=== PATIENT | female | born 1965 | race Caucasian/White ===

== ENCOUNTER 2020-02-20 03:55 | Inpatient (IN) | payer BC ==
[~2020-02-20] VITALS: Ht 165.1 cm; Wt 63.5 kg
[2020-02-20] VITALS (10 sets, daily range): BP systolic 88–122; BP diastolic 46–56
[2020-02-20] MEDS ORDERED: [UNRECOGNIZED DRUG - REMARK] (04:41)
[2020-02-20] MEDS ORDERED: ENOX60DI SQ (04:41)
[2020-02-20] MEDS ORDERED: ONDA4TAB8 PO (04:41)
[2020-02-20 04:46] LABS: BASOPHILS # (AUTO) 0.1 K/uL (0.0-8.0); BASOPHILS % (AUTO) 0.3 % (0.0-2.0); LYMPHOCYTES # (AUTO) 1.2 K/uL (20.0-40.0); LYMPHOCYTES % (AUTO) 3.7 % (20.5-51.5); MEAN CORPUSCULAR HEMOGLOBIN 30.7 uug (24.7-32.8); MEAN CORPUSCULAR HGB CONC 31 g/dL (32.3-35.6); MEAN CORPUSCULAR VOLUME 100.1 fL (75.5-95.3); MONOCYTES # (AUTO) 1.2 K/uL (2.0-10.0); MONOCYTES % (AUTO) 3.7 % (0.0-11.0); NEUTROPHILS # (AUTO) 30.1 K/uL (1.8-8.9); NEUTROPHILS % (AUTO) 92.3 % (38.5-71.5); PLATELET COUNT (AUTO) 265 K/uL (179-408)
[2020-02-20 04:51] LABS: HEMOGLOBIN 6.2 g/dL (10.9-14.3); RED BLOOD CELL COUNT(AUTO) 2.01 MIL/uL (3.63-4.92); WHITE BLOOD COUNT (AUTO) 32.6 K/uL (3.8-11.8)
[2020-02-20 04:52] LABS: HEMATOCRIT 20.1 % (31.2-41.9)
[2020-02-20 04:58] LABS: BILIRUBIN,DIRECT 0.2 mg/dL (0.0-0.2); POTASSIUM 4.6 mmol/L (3.5-5.1); TOTAL PROTEIN, SERUM 6.1 g/dL (6.4-8.2)
[2020-02-20] MEDS ORDERED: PIPERACILLIN SODIUM/TAZOBACTAM 3.375 G in IV DEXTROSE 5% 50 ML IV ONE (05:15)
[2020-02-20] MEDS ORDERED: VANCOMYCIN 1G/D5W 200 ML PIGGYBACK IV ONE (05:15)
[2020-02-20] MEDS ORDERED: NOREPINEPHRINE BITARTRATE 8 MG in IV NORMAL SALINE 242 ML IV PRN (05:15)
[2020-02-20] MEDS ORDERED: METRONIDAZOLE 500 MG/NS 100 ML PIGGYBACK IV ONE (05:15)
--- NOTE | 2020-02-20 05:15 | NUR ---
O Negative blood infusion started per Dr. Carr order. Verified with Isaiah EVANS.
[2020-02-20] MEDS ORDERED: LORA1TAB PO (05:40)
[2020-02-20] MEDS ORDERED: CLON0.5T4 PO (05:40)
[2020-02-20] MEDS ORDERED: MELA5TAB PO (05:40)
[2020-02-20] MEDS ORDERED: DOCU-141 PO (05:40)
[2020-02-20] MEDS ORDERED: PROC10TA29 PO (05:40)
[2020-02-20] MEDS ORDERED: CALC-168 PO (05:40)
[2020-02-20] MEDS ORDERED: PIPERACILLIN SODIUM/TAZO 3.375 GM VIAL ONE ×2 (06:01→06:06)
--- NOTE | 2020-02-20 06:12 | NUR ---
Dr. Carr on panel call with Dr. Fan Wood.
--- NOTE | 2020-02-20 06:15 | NUR ---
1 unit of O Negative blood transfused as ordered. Vitals are stable. No signs of reaction.
[2020-02-20] MEDS ORDERED: SWABABLE VALVE TRANSFER SET EA MC ONE (06:30)
[2020-02-20] MEDS ORDERED: IOHEXOL 300MG/ML 100 ML INFUS..BTL ONE (06:30)
[2020-02-20] MEDS ORDERED: IV NORMAL SALINE 250 ML IV ONE (06:30)
[2020-02-20 06:34] LABS: *OCCULT BLOOD STOOL NEGATIVE (NEGATIVE)
--- NOTE | 2020-02-20 06:40 | NUR ---
Patient went down to radiology dept for CT scans.
--- NOTE | 2020-02-20 07:04 | NUR ---
Patient back from radiology dept. Placed back on monitor. IV antibiotics infusing.
--- NOTE | 2020-02-20 07:12 | NUR ---
Report given to CRISTINA Mcclain for continuity of care.
[2020-02-20] MEDS ORDERED: VANCOMYCIN IV 200 ML ONE (08:09)
--- NOTE | 2020-02-20 08:30 | NUR ---
Paged Dr. Huston/[facility] for admitting.
[2020-02-20 08:41] LABS: BAND % (MANUAL) 5 % (0-10); LYMPHOCYTES % (MANUAL) 3 % (20-40); METAMYELOCYTES % 3 % (0-1); MONOCYTES % (MANUAL) 3 % (2-10); MYELOCYTES % 2 % (0-0); NEUTROPHILS % (MANUAL) 84 % (42-75)
[2020-02-20] MEDS ORDERED: IV NORMAL SALINE 1000 ML BAG IV ONE (08:45)
--- NOTE | 2020-02-20 09:18 | NUR ---
Place a call to [facility] transfer center, no bed availibity per Rashad jacinto.
--- NOTE | 2020-02-20 09:28 | NUR ---
CELE HELMS spoke with pt's [place] MD Dr. Dale Weaver . x4
[2020-02-20] MEDS ORDERED: LORAZEPAM 1 MG TABLET PO PRN (12:00)
[2020-02-20] MEDS ORDERED: MAGNESIUM HYDROXIDE 30 ML LIQUID UDC PO PRN (12:00)
[2020-02-20] MEDS ORDERED: ONDANSETRON 4 MG/2 ML VIAL IV PRN (12:00)
[2020-02-20] MEDS ORDERED: ACETAMINOPHEN 325 MG TABLET PO PRN (12:00)
[2020-02-20] MEDS ORDERED: HYDROCODONE/APAP 5-325MG TABLET PO PRN (12:00)
[2020-02-20] MEDS ORDERED: Z GUARD REMEDY PASTE 57 GM TUBE TOP PRN (12:00)
[2020-02-20] MEDS ORDERED: PROCHLORPERAZINE MALEATE 5 MG TABLET PO PRN (12:00)
[2020-02-20] MEDS ORDERED: ONDANSETRON ODT 4 MG TAB.RAPDIS SL PRN (12:00)
[2020-02-20 12:52] LABS: HEMOGLOBIN 6.4 g/dL (10.9-14.3)
[2020-02-20] MEDS: IV NS 1000 ML 1,000 ML IV SCH ×2 (15:00→22:21)
--- NOTE | 2020-02-20 15:02 | NUR ---
patient admitted from ER, alert, oriented x4, no sob, resp even nonlabored, skin warm and dry to touch, patient is going to receive another unit of blood, MD Huston is aware.
--- NOTE | 2020-02-20 17:00 | NUR ---
BLOOD TRANSFUSION STARTED WITH WITTNESS OF ANOTHER NURSE, PATIENT IS TOLERATING WELL
--- NOTE | 2020-02-20 18:14 | NUR ---
PATIENT IS TOLERATING BLOOD TRANSFUSION WELL, NO ADVERSE REACTIONS NOTED.
--- NOTE | 2020-02-20 19:01 | NUR ---
BLOOD TRANSFUSION ENDED, NO ADVERSE REACTIONS NOTED, PATIENT TOLERATED WELL
[2020-02-20] MEDS: CLONAZEPAM 0.5 MG TABLET PO SCH (20:21)
[2020-02-20] MEDS: MELATONIN 3 MG TABLET PO SCH (20:22)
[2020-02-20 20:49] LABS: HEMATOCRIT 22.9 % (31.2-41.9)
[2020-02-20 20:57] LABS: HEMOGLOBIN 7.4 g/dL (10.9-14.3)
[2020-02-21] VITALS (14 sets, daily range): BP systolic 93–131; BP diastolic 34–69
--- NOTE | 2020-02-21 03:21 | NUR ---
DR. TIERA NARVAEZ ORDERED 1 UNIT OF BLOOD TO TRANSFUSE TO PATIENT.
[2020-02-21 05:25] LABS: BASOPHILS # (AUTO) 0.1 K/uL (0.0-8.0); BASOPHILS % (AUTO) 0.5 % (0.0-2.0)
[2020-02-21 05:27] LABS: EOSINOPHILS % (AUTO) 0.1 % (0.0-7.0); HEMATOCRIT 21.8 % (31.2-41.9); LYMPHOCYTES # (AUTO) 0.7 K/uL (20.0-40.0); LYMPHOCYTES % (AUTO) 4.5 % (20.5-51.5); MEAN CORPUSCULAR HEMOGLOBIN 29.6 uug (24.7-32.8); MEAN CORPUSCULAR HGB CONC 32 g/dL (32.3-35.6); MEAN CORPUSCULAR VOLUME 91.7 fL (75.5-95.3); MONOCYTES % (AUTO) 6.3 % (0.0-11.0); NEUTROPHILS # (AUTO) 14.1 K/uL (1.8-8.9); NEUTROPHILS % (AUTO) 88.6 % (38.5-71.5); PLATELET COUNT (AUTO) 189 K/uL (179-408); WHITE BLOOD COUNT (AUTO) 15.9 K/uL (3.8-11.8)
[2020-02-21 05:30] LABS: RED BLOOD CELL COUNT(AUTO) 2.38 MIL/uL (3.63-4.92)
[2020-02-21 05:53] LABS: CREATININE 0.8 mg/dL (0.6-1.3); MAGNESIUM 2.1 mg/dL (1.8-2.4); PHOSPHOROUS 2.7 mg/dL (2.5-4.9)
[2020-02-21] MEDS: IV NS 1000 ML 1,000 ML IV SCH ×2 (05:53→17:29)
[2020-02-21] MEDS: DOCUSATE SODIUM 100 MG CAPSULE PO SCH (09:11)
[2020-02-21] MEDS: CALCIUM CARB/VITAMIN D 600-400 MG TABLET PO SCH (09:12)
--- NOTE | 2020-02-21 10:56 | NUR ---
patient alert, oriented x4, no sob, resp even nonlabored,s kin warm and dry to touch, blood transfusion done successfully, no adverse reactions noted, such as no sob, no rash, no itchy, lungs clear upon auscultation, noted IV infiltrate at right upper arm, IV removed, switched to right hand IV access, intact, no signs and symptoms of infiltration noted at right hand IV site. no distress noted, patient tolerated blood transfusion well, tolerated her breakfast well.
--- NOTE | 2020-02-21 13:00 | NUR ---
patient has intact quentin cath on her left upper arm
[2020-02-21 13:02] LABS: HEMATOCRIT 25.9 % (31.2-41.9); HEMOGLOBIN 8.4 g/dL (10.9-14.3)
--- NOTE | 2020-02-21 15:09 | NUR ---
CURRENT HEMOGLOBIN RELAYED TO DR GUERRIER AND WITH ORDER TO REPEAT IN 4 HOURS NOTED
[2020-02-21 18:56] LABS: HEMATOCRIT 24.5 % (31.2-41.9); HEMOGLOBIN 7.9 g/dL (10.9-14.3)
[2020-02-21] MEDS ORDERED: PANTOPRAZOLE SODIUM IV 80 MG in IV DEXTROSE 5% 100 ML IV ONE (20:00)
--- NOTE | 2020-02-21 20:00 | NUR ---
Received pt AAOx4. No s/s of acute distress noted at this time. On RA denies SOB. Right wrist IV patent and intact. Pt ambulatory to restroom with standby assist, denies dizziness and lightheadedness when walking. gasfitter in place. Safety measures in place.
--- NOTE | 2020-02-21 20:00 | NUR ---
Received patient resting. AAOX4. No s/s of acute distress noted at this time. Pt on RA denies SOB. Right wrist IV patent and intact. silver buffer in place. Bed alarm on, safety measures in place.
--- NOTE | 2020-02-21 20:06 | NUR ---
DR KHALIL GI CALLED ORDER FOR HEMOGLOBIN AND HEMATOCRIT EVERY 6 HOURS. IF PATIENT PATIENT DROPS FOLLOW UP WITH MD AND MAY CONSIDER TRANSFUSION, IF THERE IS BLACK STOOL PLS NOTIFY DR KHALIL, ENDORSED ACCORDINGLY TO NEXT SHIFT
[2020-02-21] MEDS ORDERED: PANTOPRAZOLE SODIUM 40 MG VIAL IV SCH (21:00)
[2020-02-21] MEDS: CLONAZEPAM 0.5 MG TABLET PO SCH (21:00)
[2020-02-21] MEDS: MELATONIN 3 MG TABLET PO SCH (21:00)
[2020-02-22] VITALS (9 sets, daily range): BP systolic 103–143; BP diastolic 53–75
[2020-02-22 01:40] LABS: HEMOGLOBIN 7.4 g/dL (10.9-14.3)
[2020-02-22] MEDS: IV NS 1000 ML 1,000 ML IV SCH ×2 (04:04→14:32)
--- NOTE | 2020-02-22 04:20 | NUR ---
Pt had a bowel movement, soft and brown. No c/o abd pain or discomfort at this time. will continue to monitor for s/s of bleeding
--- NOTE | 2020-02-22 07:30 | NUR ---
Received patient awake alert and oriented times 4. No sign of distress noted. Patient is on reverse isolation. Safety precautions are in place. Will continue to monitor.
[2020-02-22 08:28] LABS: BASOPHILS # (AUTO) 0.1 K/uL (0.0-8.0); BASOPHILS % (AUTO) 0.5 % (0.0-2.0); EOSINOPHILS % (AUTO) 0.2 % (0.0-7.0); HEMATOCRIT 24.5 % (31.2-41.9); HEMOGLOBIN 7.8 g/dL (10.9-14.3); LYMPHOCYTES # (AUTO) 0.7 K/uL (20.0-40.0); LYMPHOCYTES % (AUTO) 4.3 % (20.5-51.5); MEAN CORPUSCULAR HEMOGLOBIN 29.4 uug (24.7-32.8); MEAN CORPUSCULAR HGB CONC 32 g/dL (32.3-35.6); MEAN CORPUSCULAR VOLUME 92.5 fL (75.5-95.3); MONOCYTES # (AUTO) 0.9 K/uL (2.0-10.0); MONOCYTES % (AUTO) 5.5 % (0.0-11.0); NEUTROPHILS # (AUTO) 14.6 K/uL (1.8-8.9); NEUTROPHILS % (AUTO) 89.5 % (38.5-71.5); PLATELET COUNT (AUTO) 207 K/uL (179-408); RED BLOOD CELL COUNT(AUTO) 2.65 MIL/uL (3.63-4.92); WHITE BLOOD COUNT (AUTO) 16.4 K/uL (3.8-11.8)
[2020-02-22 08:33] LABS: CREATININE 0.8 mg/dL (0.6-1.3); POTASSIUM 4.1 mmol/L (3.5-5.1)
[2020-02-22] MEDS: DOCUSATE SODIUM 100 MG CAPSULE PO SCH (09:48)
[2020-02-22] MEDS: CALCIUM CARB/VITAMIN D 600-400 MG TABLET PO SCH (09:48)
[2020-02-22] MEDS: PANTOPRAZOLE SODIUM 40 MG VIAL IV SCH ×2 (09:48→22:20)
[2020-02-22 13:05] LABS: HEMATOCRIT 27.2 % (31.2-41.9); HEMOGLOBIN 8.3 g/dL (10.9-14.3)
--- NOTE | 2020-02-22 19:54 | NUR ---
Patient is resting in bed, no sign of distress noted. Gave all medications as ordered. Safety precautions in place. Will endorse to oncoming nurse.
--- NOTE | 2020-02-22 20:30 | NUR ---
Per confectionery laboratory manager no one available from blood bank to release unit until 2200. Will call after 2200 to follow up.
[2020-02-22] MEDS: CLONAZEPAM 0.5 MG TABLET PO SCH (21:00)
[2020-02-22] MEDS: MELATONIN 3 MG TABLET PO SCH (21:00)
--- NOTE | 2020-02-22 22:15 | NUR ---
Called lab, blood bank tech Lizz available and awaiting release for unit for transfusion.
--- NOTE | 2020-02-22 23:40 | NUR ---
Per order pt to received one unit of RBCs. Unit issued by the blood bank unable to be scanned in [employer], unknown product number error. Unable to override blood product per Nursing [employer] Motorman Evie and Charge Nurse Zane. Per blood bank kole Zamudio and their supervisor wool shearing it is ok to give unit with downtime paper charting. Nursing supervisor wool shearing made aware. Verified pt information along with blood bank information with Nursing [employer]. Began transfusion at 2339. Beginning vitals BP 110/62 HR 94 Temp. 98.4 Will continue to monitor for s/s of reaction.
[2020-02-23] VITALS (8 sets, daily range): BP systolic 113–136; BP diastolic 56–68
--- NOTE | 2020-02-23 02:10 | NUR ---
Blood Transfusion Complete. Pt tolerated well, No s/s of adverse reaction. VSS. Addendum: 02/23/20 at 0436 by AL BELLE RN Post transfusion H&H delayed due to no human factors ergonomist available. This editorial writer completed order and sent to lab, awaiting lab results. Addendum: 02/23/20 at 0543 by AL BELLE RN H&H Result 9.0/28.2
[2020-02-23] MEDS: IV NS 1000 ML 1,000 ML IV SCH ×3 (02:21→22:03)
[2020-02-23 05:12] LABS: BAND % (MANUAL) 5 % (0-10); LYMPHOCYTES % (MANUAL) 5 % (20-40); METAMYELOCYTES % 2 % (0-1); MONOCYTES % (MANUAL) 5 % (2-10); MYELOCYTES % 2 % (0-0); NEUTROPHILS % (MANUAL) 81 % (42-75)
[2020-02-23 05:36] LABS: HEMATOCRIT 28.2 % (31.2-41.9)
--- NOTE | 2020-02-23 07:30 | NUR ---
Received patient awake alert and oriented times 4. No sign of distress noted. Patient is on reverse isolation because she is neutropenic. Safety precautions are in place with call light and belongings within reach. Will continue to monitor.
[2020-02-23 09:05] LABS: CREATININE 0.6 mg/dL (0.6-1.3); POTASSIUM 3.8 mmol/L (3.5-5.1)
[2020-02-23 09:44] LABS: BASOPHILS # (AUTO) 0.1 K/uL (0.0-8.0); BASOPHILS % (AUTO) 0.4 % (0.0-2.0); EOSINOPHILS # (AUTO) 0.1 K/uL (0.0-0.7); EOSINOPHILS % (AUTO) 0.3 % (0.0-7.0); HEMATOCRIT 27.8 % (31.2-41.9); LYMPHOCYTES # (AUTO) 0.6 K/uL (20.0-40.0); LYMPHOCYTES % (AUTO) 3.6 % (20.5-51.5); MEAN CORPUSCULAR HGB CONC 32 g/dL (32.3-35.6); MEAN CORPUSCULAR VOLUME 93.2 fL (75.5-95.3); MONOCYTES # (AUTO) 0.9 K/uL (2.0-10.0); MONOCYTES % (AUTO) 5.4 % (0.0-11.0); NEUTROPHILS # (AUTO) 14.9 K/uL (1.8-8.9); NEUTROPHILS % (AUTO) 90.3 % (38.5-71.5); PLATELET COUNT (AUTO) 235 K/uL (179-408); RED BLOOD CELL COUNT(AUTO) 2.98 MIL/uL (3.63-4.92); WHITE BLOOD COUNT (AUTO) 16.5 K/uL (3.8-11.8)
[2020-02-23] MEDS: CALCIUM CARB/VITAMIN D 600-400 MG TABLET PO SCH (09:45)
[2020-02-23] MEDS: DOCUSATE SODIUM 100 MG CAPSULE PO SCH (09:46)
[2020-02-23] MEDS: PANTOPRAZOLE SODIUM 40 MG VIAL IV SCH ×2 (09:46→22:02)
[2020-02-23 12:20] LABS: HEMATOCRIT 27.6 % (31.2-41.9); HEMOGLOBIN 8.7 g/dL (10.9-14.3)
--- NOTE | 2020-02-23 18:53 | NUR ---
Patient is resting in bed. No sign of distress noted at this time. All medications given as ordered. Patient is still on reverse isolation because of neutropenia. Safety precautions are in place. Will endorse to oncoming nurse.
[2020-02-23] MEDS: MELATONIN 3 MG TABLET PO SCH (21:00)
[2020-02-23] MEDS: CLONAZEPAM 0.5 MG TABLET PO SCH (21:00)
[2020-02-24] VITALS: BP 126/55
[2020-02-24 04:00] VITALS: BP 130/62
--- NOTE | 2020-02-24 07:00 | NUR ---
Pt resting in bed. No s/s of acute distress noted. VSS. Pt denies SOB, pain and discomfort. All needs were met and attended to. Safety measures in place. Will endorse to oncoming staff.
--- NOTE | 2020-02-24 07:30 | NUR ---
Received pt resting in bed. Awake, A&Ox4. No s/s of acute distress noted, no SOB. Respirations even and unlabored. Pt denies pain and discomfort. Pt able to verbalize needs. Safety measures in place. Call light and belongings within reach. Will continue to monitor.
[2020-02-24 08:20] LABS: BASOPHILS # (AUTO) 0.1 K/uL (0.0-8.0); BASOPHILS % (AUTO) 1.1 % (0.0-2.0); EOSINOPHILS % (AUTO) 0.3 % (0.0-7.0); HEMATOCRIT 27.7 % (31.2-41.9); HEMOGLOBIN 9.2 g/dL (10.9-14.3); LYMPHOCYTES # (AUTO) 0.6 K/uL (20.0-40.0); LYMPHOCYTES % (AUTO) 4.7 % (20.5-51.5); MEAN CORPUSCULAR HEMOGLOBIN 30.6 uug (24.7-32.8); MEAN CORPUSCULAR HGB CONC 33 g/dL (32.3-35.6); MEAN CORPUSCULAR VOLUME 92.4 fL (75.5-95.3); MONOCYTES # (AUTO) 0.7 K/uL (2.0-10.0); MONOCYTES % (AUTO) 5.6 % (0.0-11.0); NEUTROPHILS # (AUTO) 11.5 K/uL (1.8-8.9); NEUTROPHILS % (AUTO) 88.3 % (38.5-71.5); PLATELET COUNT (AUTO) 252 K/uL (179-408); RED BLOOD CELL COUNT(AUTO) 2.99 MIL/uL (3.63-4.92)
[2020-02-24 08:48] LABS: CREATININE 0.7 mg/dL (0.6-1.3); POTASSIUM 3.8 mmol/L (3.5-5.1)
[2020-02-24] MEDS: PANTOPRAZOLE SODIUM 40 MG VIAL IV SCH (09:30)
[2020-02-24] MEDS: DOCUSATE SODIUM 100 MG CAPSULE PO SCH (09:30)
[2020-02-24] MEDS: CALCIUM CARB/VITAMIN D 600-400 MG TABLET PO SCH (09:30)
--- NOTE | 2020-02-24 09:30 | NUR ---
0900 medications held d/t impending dishcharge. Dr. Huston at bedside and aware. Pt aware and in agreement. No s/s of acute distress, no SOB, no signs of active bleeding, no complaints of pain or discomfort. Will continue to monitor.
[2020-02-24 11:42] VITALS: BP 138/67
[2020-02-24 12:36] LABS: HEMATOCRIT 30.7 % (31.2-41.9)
--- NOTE | 2020-02-24 15:35 | NUR ---
Pt left via WC at 1535. Neighbor Elsa at front of hospital to meet pt and bring her home. VSS, no SOB, no complaints of pain or discomfort. Discharge instructions, education, medication list given. Pt verbalized understanding. All discharge documents signed. All belongings accounted and signed for by pt. Pt requested medical record, signed authorization, and received. DAISY midline removed, catheter intact, no signs of bleeding noted. ID band removed.
== END 2020-02-24 15:35 | disposition home or self-care (01) | DRG 375 ==
LOC: ER 03:58 → TELE 11:00
PROVIDERS: ADMIT Family Medicine; ATTEND Family Medicine
PROC: 30233N1 Transfusion of Nonautologous Red Blood Cells into Peripheral Vein, Percutaneous Approach (ICD-10-PCS; principal; 2020-02-20)
DX: C78.6 Secondary malignant neoplasm of retroperitoneum and peritoneum (principal); K92.2 Gastrointestinal hemorrhage, unspecified; D62 Acute posthemorrhagic anemia; E87.2 Acidosis; E44.0 Moderate protein-calorie malnutrition; D63.0 Anemia in neoplastic disease; D72.829 Elevated white blood cell count, unspecified; Z86.718 Personal history of other venous thrombosis and embolism; R73.9 Hyperglycemia, unspecified; R55 Syncope and collapse; E88.09 Other disorders of plasma-protein metabolism, not elsewhere classified; W18.30XA Fall on same level, unspecified, initial encounter; Y93.9 Activity, unspecified; Y92.099 Unspecified place in other non-institutional residence as the place of occurrence of the external cause; Z85.828 Personal history of other malignant neoplasm of skin; Z20.822 Contact with and (suspected) exposure to COVID-19; T45.515A Adverse effect of anticoagulants, initial encounter
CPT/HCPCS: 36415; 70030-TC; 70450; 71045; 83550; 83605; 83735; 84100; 85018; 85025; 85730; 86850; 86900; 86901; 86920; 87040; 93005; C9113; G0378; J2543; J3370; J3490; J7030; J7050; J7060; J8499; P9016-BL; P9021; Q9967